=== PATIENT | male | born 1950 | race African-American/Black ===

== ENCOUNTER 2020-07-23 11:13 | Inpatient (IN) | payer OTHER ==
--- NOTE | 2020-07-23 11:35 | BHS.RME ---
Substance Use & Tx History - Substance Use History Alcohol Substance amount: 3 pints vodka Frequency of use: Daily Substance route: Oral Date of Last Use: 07/22/20 - Last Treatment Date of last treatment: 2015 Treatment type: Substance Use Disorder (DUSTY) Where was last treatment: Detox Physical/Psych/Mental Status - Behavior General Behavior: Increased activity (restlessness, agitation) Eye Contact: Normal - Cooperativeness Cooperativeness: Cooperative - Thinking Thought Processes: Tight, Logical, Goal Directed - Physical Health Problems Is patient presently having any pain?: No Does patient presently have any injuries (include location): No Does patient currently have a fever: No Is patient : No CIWA Nausea/Vomitin-Mild Nausea/No Vomiting Muscle Tremors: 2 Anxiety: 2 Agitation: 2 Paroxysmal Sweats: 2 Orientation: 1-Uncertain about Date Tacttile Disturbances: 1-Very Mild Itch/Numbness Auditory Disturbances: 0-None Visual Disturbances: 0-None Headache: 0-None Present CIWA-Ar Total Score: 11
--- NOTE | 2020-07-23 13:45 | HP ---
<Obi Harman - Last Filed: 07/23/20 13:55> CIWA Score Nausea/Vomitin-Mild Nausea/No Vomiting Muscle Tremors: 2 Anxiety: 2 Agitation: 2 Paroxysmal Sweats: 2 Orientation: 1-Uncertain about Date Tacttile Disturbances: 1-Very Mild Itch/Numbness Auditory Disturbances: 0-None Visual Disturbances: 0-None Headache: 0-None Present CIWA-Ar Total Score: 11 - Admission Criteria OASAS Guidelines: Admission for Medically Managed Detox: Requires at least one of the followin. CIWA greater than 12 2. Seizures within the past 24 hours 3. Delirium tremens within the past 24 hours 4. Hallucinations within the past 24 hours 5. Acute intervention needed for co occurring medical disorder 6. Acute intervention needed for co occurring psychiatric disorder 7. Severe withdrawal that cannot be handled at a lower level of care (continued vomiting, continued diarrhea, abnormal vital signs) requiring intravenous medication and/or fluids 8. Admitting History and Physical - Admission Chief Complaint: Drinking, dehydrated History of Present Illness: 70 y.o. M presents with alcohol dependence. - Substance Use History Alcohol Substance amount: 3 pints vodka Frequency of use: Daily Substance route: Oral Date of Last Use: 07/22/20 - Last Treatment Date of last treatment: 2015 Treatment type: Substance Use Disorder (DUSTY) Where was last treatment: Detox PMH: HTN PSH: b/l hip replacement, lung resection Psych: none Social: lives in [place] with his legal: none FELIX: 0.180 CIWA: 11 Patient admitted to detox/rehab for alcohol dependence. 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 Meets inpatient criteria. - Past Medical History Cardiovascular: Yes: HTN Pulmonary: Yes: Other (Lung cancer) Psych: Yes: Other (EtOH abuse) - Past Surgical History Additional Past Surgical History: Lobectomy - Smoking History Smoking history: Former smoker Have you smoked in the past 12 months: No If you are a former smoker, when did you quit?: 30 years ago - Alcohol/Substance Use Hx Alcohol Use: Yes History of Substance Use: reports: None (EtOH) - Social History Usual Living Arrangement: Yes: With Spouse Occupation: None History of Recent Travel: No Admission ROS BHS - HPI Chief Complaint: Alcohol dependence Allergies/Adverse Reactions: Allergies Allergy/AdvReac Type Severity Reaction Status Date / Time No Known Allergies Allergy Verified 07/23/20 16:22 - Ebola screening Have you traveled outside of the country in the last 21 days: No Have you had contact with anyone from an Ebola affected area: No Have you been sick,other than usual withdrawal symptoms: No Do you have a fever: No - Review of Systems Constitutional: No Symptoms Reported EENT: reports: No Symptoms Reported Respiratory: reports: No Symptoms reported Cardiac: reports: No Symptoms Reported Psychiatric: reports: Orientated x3 Patient History - Patient Medical History Hx Anemia: No Hx Asthma: No Hx Chronic Obstructive Pulmonary Disease (COPD): No Hx Cancer: No Hx Cardiac Disorders: No Hx Congestive Heart Failure: No Hx Hypertension: Yes Hx Hypercholesterolemia: Yes (WAS ON MEDS NON-COMPLIANT) Hx Pacemaker: No HX Cerebrovascular Accident: No Hx Seizures: No Hx Dementia: No Hx Diabetes: No Hx Gastrointestinal Disorders: No Hx Liver Disease: Yes Hx Genitourinary Disorders: No Hx Sexually Transmitted Disorders: No Hx Renal Disease (ESRD): No Hx Thyroid Disease: No Hx Human Immunodeficiency Virus (HIV): No Hx Hepatitis C: Yes (NEEDS TREATMENT) Hx Depression: No Hx Suicide Attempt: No Hx Bipolar Disorder: No Hx Schizophrenia: No - Patient Surgical History Past Surgical History: Yes Hx Cataract Extraction: Yes (about 3 yrs) Hx Abdominal Surgery: Yes (FOR ULCER,UNSURE OF PROCEDURE) Hx Orthopedic Surgery: Yes (BILATERAL HIP REPLACEMENT) - PPD History Date: 08/22/16 - Smoking Cessation Smoking history: Former smoker Have you smoked in the past 12 months: No If you are a former smoker, when did you quit?: 30 years ago Initiated information on smoking cessation: Yes 'Breaking Loose' booklet given: 07/23/20 Admission Physical Exam S - Vital Signs Vital Signs: Vitals: BP: 115/77 Pulse: 103 RR: 18 Temp: 97.5 WT: 158 HT: 6ft - Physical General Appearance: Yes: Within Normal Limits, Nourished HEENTM: Yes: Within Normal Limits Respiratory: Yes: Lungs Clear, Normal Breath Sounds, No Accessory Muscle Use Cardiology: Yes: Regular Rhythm, Regular Rate, S1, S2 Abdominal: Yes: Normal Bowel Sounds, Non Tender Extremities: Yes: Within Normal Limits Integumentary: Yes: Within Normal Limits, Normal Color, Warm Breathalyzer - Breathalyzer Breathalyzer: 0.180 Vital Signs - Vital Signs Vital signs refused: No Urine Drug Screen - Test Device Lot number: [id number] Expiration date: 07/03/22 - Control Is test valid?: Yes - Results Drug screen NEGATIVE: No Urine drug screen results: BZO-Benzodiazepines Inpatient Rehab Admission - Rehab Decision to Admit Inpatient rehab admission?: Yes - Initial Determination Are CD services needed?: No Free of communicable disease: Yes Not in need of hospitalization: Yes - Rehab Admission Criteria Previous failed treatment: Yes Poor recovery environment: Yes Comorbidities: Yes Lacks judgement: Yes Patient is meeting Inpatient Rehab admission criteria:: Yes <Aaron Zavala - Last Filed: 07/25/20 08:35> CIWA Score - Admission Criteria OASAS Guidelines: Admission for Medically Managed Detox: Requires at least one of the followin. CIWA greater than 12 2. Seizures within the past 24 hours 3. Delirium tremens within the past 24 hours 4. Hallucinations within the past 24 hours 5. Acute intervention needed for co occurring medical disorder 6. Acute intervention needed for co occurring psychiatric disorder 7. Severe withdrawal that cannot be handled at a lower level of care (continued vomiting, continued diarrhea, abnormal vital signs) requiring intravenous medication and/or fluids 8. Admitting History and Physical - Admission History Source: Patient Limitations to Obtaining History: No Limitations Admission Physical Exam BHS - Vital Signs Vital Signs: Vital Signs - 24 hr 07/24/20 07/24/20 07/24/20 09:05 12:42 16:57 Temperature 97.5 F L 97.5 F L 97.3 F L Pulse Rate 78 97 H 88 Respiratory 16 18 18 Rate Blood Pressure 119/64 110/76 105/76 O2 Sat by Pulse 98 98 Oximetry (%) 07/24/20 07/25/20 20:47 06:04 Temperature 97.3 F L 97.3 F L Pulse Rate 83 66 Respiratory 18 18 Rate Blood Pressure 114/78 115/69 O2 Sat by Pulse 95 Oximetry (%) - Diagnostic (1) Alcohol dependence with uncomplicated withdrawal Current Visit: Yes Status: Acute (2) Alcohol intoxication Current Visit: Yes Status: Acute Qualifiers: Complication of substance-induced condition: with unspecified complication (3) Alcohol-induced sleep disorder Current Visit: Yes Status: Acute (4) GERD (gastroesophageal reflux disease) Current Visit: Yes Status: Acute (5) HTN (hypertension) Current Visit: Yes Status: Acute Qualifiers: Hypertension type: essential hypertension Qualified Code(s): I10 - Essential (primary) hypertension (6) Hepatitis C Current Visit: Yes Status: Acute Qualifiers: Viral hepatitis chronicity: chronic Hepatic coma status: without hepatic coma Qualified Code(s): B18.2 - Chronic viral hepatitis C (7) Hyperlipidemia Current Visit: Yes Status: Acute
[2020-07-23] MEDS ORDERED: NICOTINE POLACRILEX 2 MG GUM BUC PRN (13:50)
[2020-07-23] MEDS ORDERED: chlordiazePOXIDE HCL 25 MG CAPSULE PO PRN (13:50)
[2020-07-23] MEDS ORDERED: MAGNESIUM CITRATE 300 ML BOTTLE PO PRN (13:50)
[2020-07-23] MEDS ORDERED: METHOCARBAMOL 500 MG TABLET PO PRN (13:50)
[2020-07-23] MEDS ORDERED: MENTHOL/PHENOL 1 EACH UD MM PRN (13:50)
[2020-07-23] MEDS ORDERED: MAGNESIUM HYDROX 2400MG/30ML ORAL SUSPENSION 30 ML CUP PO PRN (13:50)
[2020-07-23] MEDS ORDERED: MAG HYDROX/AL HYDROX/SIMETH 30 ML UNIT-DOSE CUP PO PRN (13:50)
[2020-07-23] MEDS ORDERED: BISMUTH SUBSALICYLATE 524 MG/30 ML UD PO PRN (13:50)
[2020-07-23] MEDS ORDERED: IBUPROFEN 400 MG TABLET (FP) PO PRN (13:50)
[2020-07-23] MEDS ORDERED: ACETAMINOPHEN 325 MG TABLET (FP) PO PRN ×2 (13:50)
[2020-07-23 16:57] VITALS: BMI 21.4
[2020-07-23] MEDS ORDERED: ONDANSETRON *ODT* 4 MG TABLET SL ONE (17:00)
[2020-07-23] MEDS: chlordiazePOXIDE HCL 25 MG CAPSULE PO SCH ×2 (18:15→22:08)
[2020-07-23] MEDS: hydrOXYzine PAMOATE 25 MG CAPSULE (FP) PO SCH ×3 (18:15→22:08)
[2020-07-23] MEDS: NICOTINE 7 MG/24 HOURS TOPICAL PATCH TD SCH (18:22)
[2020-07-23] MEDS: PRENATAL VITAMINS W/ FOLIC ACID TABLET (FP) PO SCH (18:22)
[2020-07-23] MEDS: THIAMINE HCL 100 MG TABLET (FP) PO SCH (22:08)
[2020-07-23] MEDS: MELATONIN 5 MG TABLETS PO SCH (22:08)
[2020-07-24] MEDS: hydrOXYzine PAMOATE 25 MG CAPSULE (FP) PO SCH ×5 (07:47→22:43)
[2020-07-24] MEDS: chlordiazePOXIDE HCL 25 MG CAPSULE PO SCH ×4 (07:47→22:44)
[2020-07-24] MEDS: NICOTINE 7 MG/24 HOURS TOPICAL PATCH TD SCH (10:36)
[2020-07-24] MEDS: PRENATAL VITAMINS W/ FOLIC ACID TABLET (FP) PO SCH (10:40)
[2020-07-24 10:51] LABS: HEMATOCRIT 37.3 % (35.4-49); HEMOGLOBIN 12.5 GM/dL (11.7-16.9); MCH 29.3 pg (25.7-33.7); MCHC 33.4 g/dl (32.0-35.9); MEAN CELL VOLUME 87.7 fl (80-96); MEAN PLT VOLUME 9.2 fl (7.5-11.1); PLATELET COUNT 162 K/MM3 (134-434); RBC 4.25 M/mm3 (4.00-5.60); RDW 14.6 % (11.9-15.9); WHITE BLOOD COUNT 7.2 K/mm3 (4.0-10.0)
[2020-07-24 10:53] LABS: ALBUMIN 3.3 g/dl (3.4-5.0); BILIRUBIN,TOTAL 0.9 mg/dL (0.2-1); BLOOD UREA NITROGEN 16.2 mg/dL (7-18); CREATININE 0.9 mg/dL (0.55-1.3); POTASSIUM 3.7 mmol/L (3.5-5.1); TOT PROT 6.8 g/dl (6.4-8.2)
--- NOTE | 2020-07-24 12:26 | PN ---
S CIWA - CIWA Score Nausea/Vomitin-No Nausea/No Vomiting Muscle Tremors: 2 Anxiety: 3 Agitation: 0-Normal Activity Paroxysmal Sweats: 3 Orientation: 0-Oriented Tacttile Disturbances: 0-None Auditory Disturbances: 0-None Visual Disturbances: 0-None Headache: 2-Mild CIWA-Ar Total Score: 10 S Progress Note (SOAP) Subjective: c/o headache, shakes, anxiety, and sweats. Objective: 07/24/20 12:25 Vital Signs 07/24/20 07/24/20 07/24/20 06:25 07:38 09:05 Temperature 97.3 F L 97.3 F L 97.5 F L Pulse Rate 73 44 L 78 Respiratory 18 18 16 Rate Blood Pressure 125/86 110/74 119/64 O2 Sat by Pulse 96 95 98 Oximetry (%) Laboratory Last Values WBC 7.2 K/mm3 (4.0-10.0) 07/24/20 08:30 RBC 4.25 M/mm3 (4.00-5.60) 07/24/20 08:30 Hgb 12.5 GM/dL (11.7-16.9) 07/24/20 08:30 Hct 37.3 % (35.4-49) D 07/24/20 08:30 MCV 87.7 fl (80-96) 07/24/20 08:30 MCH 29.3 pg (25.7-33.7) 07/24/20 08:30 MCHC 33.4 g/dl (32.0-35.9) 07/24/20 08:30 RDW 14.6 % (11.9-15.9) 07/24/20 08:30 Plt Count 162 K/MM3 (134-434) 07/24/20 08:30 MPV 9.2 fl (7.5-11.1) 07/24/20 08:30 Sodium 137 mmol/L (136-145) 07/24/20 08:30 Potassium 3.7 mmol/L (3.5-5.1) 07/24/20 08:30 Chloride 100 mmol/L (98-107) 07/24/20 08:30 Carbon Dioxide 32 mmol/L (21-32) 07/24/20 08:30 Anion Gap 6 MMOL/L (8-16) L 07/24/20 08:30 BUN 16.2 mg/dL (7-18) 07/24/20 08:30 Creatinine 0.9 mg/dL (0.55-1.3) 07/24/20 08:30 Est GFR (CKD-EPI)AfAm 98.55 07/24/20 08:30 Est GFR (CKD-EPI)NonAf 85.03 07/24/20 08:30 Random Glucose 99 mg/dL (74-106) 07/24/20 08:30 Calcium 9.0 mg/dL (8.5-10.1) 07/24/20 08:30 Total Bilirubin 0.9 mg/dL (0.2-1) 07/24/20 08:30 AST 21 U/L (15-37) 07/24/20 08:30 ALT 20 U/L (13-61) 07/24/20 08:30 Alkaline Phosphatase 80 U/L (45-117) 07/24/20 08:30 Total Protein 6.8 g/dl (6.4-8.2) 07/24/20 08:30 Albumin 3.3 g/dl (3.4-5.0) L 07/24/20 08:30 Syphilis Serology Non-reactive (NONREACTIVE) 07/24/20 08:30 Labs noted. Assessment: 07/24/20 12:25 AOX3, in no acute respiratory distress. Full ROM, ambulating in the unit. Withdrawal symptoms. Plan: continue detox.
[2020-07-24 17:54] VITALS: TEMP 97.3
[2020-07-24] MEDS: THIAMINE HCL 100 MG TABLET (FP) PO SCH (22:43)
[2020-07-24] MEDS: MELATONIN 5 MG TABLETS PO SCH (22:44)
[2020-07-25] MEDS ORDERED: chlordiazePOXIDE HCL 25 MG CAPSULE PO SCH (05:00)
[2020-07-25] MEDS: hydrOXYzine PAMOATE 25 MG CAPSULE (FP) PO SCH (06:54)
[2020-07-25 07:30] VITALS: BP 115/69; PULSE 66
--- NOTE | 2020-07-25 09:14 | PN ---
Teaching Attending Note Name of Resident: Obi Harman ATTENDING PHYSICIAN STATEMENT I saw and evaluated the patient. I reviewed the resident's note and discussed the case with the resident. I agree with the resident's findings and plan as documented. SUBJECTIVE: OBJECTIVE: ASSESSMENT AND PLAN: Agree with resident's findings and treatment plan for detox. Problem List - Problems (1) Alcohol dependence with uncomplicated withdrawal Code(s): F10.230 - ALCOHOL DEPENDENCE WITH WITHDRAWAL, UNCOMPLICATED (2) Alcohol intoxication Code(s): F10.129 - ALCOHOL ABUSE WITH INTOXICATION, UNSPECIFIED Qualifiers: Complication of substance-induced condition: with unspecified complication (3) Alcohol-induced sleep disorder Code(s): F10.982 - ALCOHOL USE, UNSPECIFIED WITH ALCOHOL-INDUCED SLEEP DISORDER (4) GERD (gastroesophageal reflux disease) Code(s): K21.9 - GASTRO-ESOPHAGEAL REFLUX DISEASE WITHOUT ESOPHAGITIS (5) HTN (hypertension) Code(s): I10 - ESSENTIAL (PRIMARY) HYPERTENSION Qualifiers: Hypertension type: essential hypertension Qualified Code(s): I10 - Essential (primary) hypertension (6) Hepatitis C Code(s): B19.20 - UNSPECIFIED VIRAL HEPATITIS C WITHOUT HEPATIC COMA Qualifiers: Viral hepatitis chronicity: chronic Hepatic coma status: without hepatic coma Qualified Code(s): B18.2 - Chronic viral hepatitis C (7) Hyperlipidemia Code(s): E78.5 - HYPERLIPIDEMIA, UNSPECIFIED
--- NOTE | 2020-07-25 13:48 | DS ---
[facility] Detox Discharge Summary Admission Date: 07/23/20 Discharge Date: 07/25/20 (Pt left AMA) - History Present History: Alcohol Dependence Additional Comments: Pt left AMA. Pt did not complete the detox protocol. Pt states, "i just want to leave". An attempt to let pt stay and complete the detox protocol failed. Pt is encouraged to follow-up with an outpatient CD program and also to follow-up with his pmd which he verbalized understanding. Pt is Pt is AOX3, in no acute respiratory distress, Full ROM, and ambulatory. Pertinent Past History: h/o HTN, HLD, and alcohol use disorder. - Physical Exam Results Vital Signs: Vital Signs Temperature 97.3 F L 07/25/20 06:04 Pulse Rate 66 07/25/20 06:04 Respiratory Rate 18 07/25/20 06:04 Blood Pressure 115/69 07/25/20 06:04 O2 Sat by Pulse Oximetry (%) 95 07/24/20 20:47 Vital Signs 07/25/20 06:04 Temperature 97.3 F L Pulse Rate 66 Respiratory 18 Rate Blood Pressure 115/69 Laboratory Last Values WBC 7.2 K/mm3 (4.0-10.0) 07/24/20 08:30 RBC 4.25 M/mm3 (4.00-5.60) 07/24/20 08:30 Hgb 12.5 GM/dL (11.7-16.9) 07/24/20 08:30 Hct 37.3 % (35.4-49) D 07/24/20 08:30 MCV 87.7 fl (80-96) 07/24/20 08:30 MCH 29.3 pg (25.7-33.7) 07/24/20 08:30 MCHC 33.4 g/dl (32.0-35.9) 07/24/20 08:30 RDW 14.6 % (11.9-15.9) 07/24/20 08:30 Plt Count 162 K/MM3 (134-434) 07/24/20 08:30 MPV 9.2 fl (7.5-11.1) 07/24/20 08:30 Sodium 137 mmol/L (136-145) 07/24/20 08:30 Potassium 3.7 mmol/L (3.5-5.1) 07/24/20 08:30 Chloride 100 mmol/L (98-107) 07/24/20 08:30 Carbon Dioxide 32 mmol/L (21-32) 07/24/20 08:30 Anion Gap 6 MMOL/L (8-16) L 07/24/20 08:30 BUN 16.2 mg/dL (7-18) 07/24/20 08:30 Creatinine 0.9 mg/dL (0.55-1.3) 07/24/20 08:30 Est GFR (CKD-EPI)AfAm 98.55 07/24/20 08:30 Est GFR (CKD-EPI)NonAf 85.03 07/24/20 08:30 Random Glucose 99 mg/dL (74-106) 07/24/20 08:30 Calcium 9.0 mg/dL (8.5-10.1) 07/24/20 08:30 Total Bilirubin 0.9 mg/dL (0.2-1) 07/24/20 08:30 AST 21 U/L (15-37) 07/24/20 08:30 ALT 20 U/L (13-61) 07/24/20 08:30 Alkaline Phosphatase 80 U/L (45-117) 07/24/20 08:30 Total Protein 6.8 g/dl (6.4-8.2) 07/24/20 08:30 Albumin 3.3 g/dl (3.4-5.0) L 07/24/20 08:30 Syphilis Serology Non-reactive (NONREACTIVE) 07/24/20 08:30 Labs noted. Pertinent Admission Physical Exam Findings: withdrawal symptoms. - Treatment Hospital Course: Detox Protocol Followed - Medication Discharge Medications: Ambulatory Orders Ergocalciferol (Vitamin D2) [Drisdol] 50,000 units PO WEEKLY 08/09/16 Hydrochlorothiazide 25 mg PO DAILY 08/09/16 Metoprolol Succinate [Toprol XL -] 25 mg PO DAILY 08/09/16 Amlodipine Besylate [Norvasc -] 5 mg PO DAILY 07/23/20 Tamsulosin HCl [Flomax] 0.4 mg PO DAILY 07/23/20 - Diagnosis (1) Alcohol dependence with uncomplicated withdrawal Status: Acute (2) Alcohol dependence, uncomplicated Status: Chronic (3) GERD (gastroesophageal reflux disease) Status: Chronic (4) HTN (hypertension) Status: Chronic Qualifiers: Hypertension type: essential hypertension Qualified Code(s): I10 - Essential (primary) hypertension (5) Hyperlipidemia Status: Chronic - AMA Did Patient Leave Against Medical Advice: Yes
[2020-07-26] MEDS ORDERED: chlordiazePOXIDE HCL 10 MG CAPSULE PO PRN
[2020-07-26] MEDS ORDERED: chlordiazePOXIDE HCL 10 MG CAPSULE PO SCH (05:00)
[2020-07-27] MEDS ORDERED: chlordiazePOXIDE HCL 10 MG CAPSULE PO SCH (05:00)
[2020-07-28] MEDS ORDERED: chlordiazePOXIDE HCL 10 MG CAPSULE PO ONE (05:00)
== END 2020-07-25 09:15 | disposition left against medical advice (07) | DRG 894 ==
LOC: YASAS 11:13 → Y6N 16:37
PROVIDERS: ADMIT Allergy & Immunology; ATTEND Allergy & Immunology
PROC: HZ2ZZZZ Detoxification Services for Substance Abuse Treatment (ICD-10-PCS; principal; 2020-07-23)
DX: F10.230 Alcohol dependence with withdrawal, uncomplicated (principal); F10.220 Alcohol dependence with intoxication, uncomplicated; F10.282 Alcohol dependence with alcohol-induced sleep disorder; F17.211 Nicotine dependence, cigarettes, in remission; I10 Essential (primary) hypertension; E78.5 Hyperlipidemia, unspecified; K21.9 Gastro-esophageal reflux disease without esophagitis; B19.20 Unspecified viral hepatitis C without hepatic coma; Z85.118 Personal history of other malignant neoplasm of bronchus and lung; Z98.890 Other specified postprocedural states; Z96.643 Presence of artificial hip joint, bilateral
CPT/HCPCS: 36415; 80053; 85027; 86780; U0003

== ENCOUNTER 2020-12-01 17:38 | Inpatient (IN) | payer OTHER ==
[2020-12-01] MEDS ORDERED: BISMUTH SUBSALICYLATE 524 MG/30 ML UD PO PRN (18:55)
[2020-12-01] MEDS ORDERED: ACETAMINOPHEN 325 MG TABLET (FP) PO PRN ×2 (18:55)
[2020-12-01] MEDS ORDERED: MENTHOL/PHENOL 1 EACH UD MM PRN (18:55)
[2020-12-01] MEDS ORDERED: MAG HYDROX/AL HYDROX/SIMETH 30 ML UNIT-DOSE CUP PO PRN (18:55)
[2020-12-01] MEDS ORDERED: MAGNESIUM CITRATE 300 ML BOTTLE PO PRN (18:55)
[2020-12-01] MEDS ORDERED: IBUPROFEN 400 MG TABLET (FP) PO PRN (18:55)
[2020-12-01] MEDS ORDERED: NICOTINE POLACRILEX 2 MG GUM BUC PRN (18:55)
[2020-12-01] MEDS ORDERED: MAGNESIUM HYDROX 2400MG/30ML ORAL SUSPENSION 30 ML CUP PO PRN (18:55)
[2020-12-01 19:06] VITALS: BMI 21.4
[2020-12-01] MEDS: chlordiazePOXIDE HCL 25 MG CAPSULE PO PRN (19:50)
[2020-12-01] MEDS: MELATONIN 5 MG TABLETS PO SCH (23:18)
[2020-12-01] MEDS: THIAMINE HCL 100 MG TABLET (FP) PO SCH (23:18)
[2020-12-01] MEDS: chlordiazePOXIDE HCL 25 MG CAPSULE PO SCH (23:18)
[2020-12-01] MEDS: hydrOXYzine PAMOATE 25 MG CAPSULE (FP) PO SCH (23:18)
[2020-12-02 01:52] LABS: PH,URINE 5.5 (5.0-8.0); URINE APPEARANCE CLEAR; URINE BILIRUBIN NEGATIVE (NEGATIVE); URINE COLOR YELLOW; URINE GLUCOSE (UA) NEGATIVE (NEGATIVE); URINE KETONE NEGATIVE (NEGATIVE); URINE LEUK ESTERASE NEGATIVE (NEGATIVE); URINE NITRITE NEGATIVE (NEGATIVE); URINE PROTEIN NEGATIVE (NEGATIVE)
[2020-12-02] MEDS: hydrOXYzine PAMOATE 25 MG CAPSULE (FP) PO SCH ×5 (05:38→22:37)
[2020-12-02] MEDS: chlordiazePOXIDE HCL 25 MG CAPSULE PO SCH ×4 (05:38→22:37)
[2020-12-02] MEDS: ONDANSETRON *ODT* 4 MG TABLET SL PRN ×2 (07:26→16:08)
[2020-12-02] MEDS: METHOCARBAMOL 500 MG TABLET PO PRN (09:15)
[2020-12-02] MEDS: chlordiazePOXIDE HCL 25 MG CAPSULE PO PRN ×2 (09:16→19:49)
[2020-12-02] MEDS ORDERED: TRIMETHOBENZAMIDE HCL 200MG/2ML INJ IM ONE (09:34)
[2020-12-02] MEDS: metoPROLOL SUCCINATE 25 MG TAB.SR.24H (FP) PO SCH (10:39)
[2020-12-02] MEDS: TAMSULOSIN HCL 0.4 MG CAP PO SCH (10:39)
[2020-12-02] MEDS: amLODIPine BESYLATE 5 MG TABLET (FP) PO SCH (10:39)
[2020-12-02] MEDS: HYDROCHLOROTHIAZIDE 25 MG TABLET (FP) PO SCH (10:39)
[2020-12-02] MEDS: FAMOTIDINE 20 MG TABLET PO SCH ×2 (10:40→22:37)
[2020-12-02] MEDS: PRENATAL VITAMINS W/ FOLIC ACID TABLET (FP) PO SCH (10:40)
[2020-12-02 11:10] LABS: HEMATOCRIT 39.3 % (35.4-49); HEMOGLOBIN 13.2 GM/dL (11.7-16.9); MCH 28.4 pg (25.7-33.7); MCHC 33.7 g/dl (32.0-35.9); MEAN CELL VOLUME 84.3 fl (80-96); MEAN PLT VOLUME 8.5 fl (7.5-11.1); PLATELET COUNT 153 K/MM3 (134-434); RBC 4.66 M/mm3 (4.00-5.60); RDW 15.5 % (11.9-15.9); WHITE BLOOD COUNT 4.6 K/mm3 (4.0-10.0)
[2020-12-02 11:12] LABS: POTASSIUM 3.9 mmol/L (3.5-5.1)
[2020-12-02 11:19] LABS: BLOOD UREA NITROGEN 13.2 mg/dL (7-18); CALCIUM 9.1 mg/dL (8.5-10.1)
[2020-12-02 11:24] LABS: TOT PROT 7.3 g/dl (6.4-8.2)
[2020-12-02] MEDS: MELATONIN 5 MG TABLETS PO SCH (22:37)
[2020-12-02] MEDS: THIAMINE HCL 100 MG TABLET (FP) PO SCH (22:37)
[2020-12-03] MEDS: chlordiazePOXIDE HCL 25 MG CAPSULE PO SCH ×4 (05:56→22:19)
[2020-12-03] MEDS: hydrOXYzine PAMOATE 25 MG CAPSULE (FP) PO SCH ×5 (05:57→22:19)
[2020-12-03] MEDS: TAMSULOSIN HCL 0.4 MG CAP PO SCH (10:31)
[2020-12-03] MEDS: FAMOTIDINE 20 MG TABLET PO SCH ×2 (10:32→22:19)
[2020-12-03] MEDS: PRENATAL VITAMINS W/ FOLIC ACID TABLET (FP) PO SCH (10:32)
[2020-12-03] MEDS: HYDROCHLOROTHIAZIDE 25 MG TABLET (FP) PO SCH (10:32)
[2020-12-03] MEDS: amLODIPine BESYLATE 5 MG TABLET (FP) PO SCH (10:32)
[2020-12-03] MEDS: metoPROLOL SUCCINATE 25 MG TAB.SR.24H (FP) PO SCH (10:33)
[2020-12-03] MEDS: THIAMINE HCL 100 MG TABLET (FP) PO SCH (22:18)
[2020-12-03] MEDS: MELATONIN 5 MG TABLETS PO SCH (22:19)
[2020-12-04] MEDS ORDERED: chlordiazePOXIDE HCL 10 MG CAPSULE PO PRN
[2020-12-04] MEDS: chlordiazePOXIDE HCL 10 MG CAPSULE PO SCH ×4 (06:08→22:33)
[2020-12-04] MEDS: hydrOXYzine PAMOATE 25 MG CAPSULE (FP) PO SCH ×6 (06:08→22:33)
[2020-12-04] MEDS ORDERED: MASKS NR ONE (09:23)
[2020-12-04] MEDS ORDERED: ERGOCALCIFEROL (VIT D2) 50,000 UNIT (1.25 MG) CAPSULE PO SCH (10:00)
[2020-12-04] MEDS: amLODIPine BESYLATE 5 MG TABLET (FP) PO SCH (10:27)
[2020-12-04] MEDS: FAMOTIDINE 20 MG TABLET PO SCH ×2 (10:27→22:33)
[2020-12-04] MEDS: HYDROCHLOROTHIAZIDE 25 MG TABLET (FP) PO SCH (10:27)
[2020-12-04] MEDS: metoPROLOL SUCCINATE 25 MG TAB.SR.24H (FP) PO SCH (10:28)
[2020-12-04] MEDS: TAMSULOSIN HCL 0.4 MG CAP PO SCH (10:28)
[2020-12-04] MEDS: PRENATAL VITAMINS W/ FOLIC ACID TABLET (FP) PO SCH (10:29)
[2020-12-04 11:01] LABS: BILIRUBIN,TOTAL 1.5 mg/dL (0.2-1)
[2020-12-04] MEDS: MELATONIN 5 MG TABLETS PO SCH (22:33)
[2020-12-04] MEDS: THIAMINE HCL 100 MG TABLET (FP) PO SCH (22:33)
[2020-12-05] MEDS: chlordiazePOXIDE HCL 10 MG CAPSULE PO SCH ×2 (06:08→18:09)
[2020-12-05] MEDS: hydrOXYzine PAMOATE 25 MG CAPSULE (FP) PO SCH ×5 (06:08→22:36)
[2020-12-05] MEDS: HYDROCHLOROTHIAZIDE 25 MG TABLET (FP) PO SCH (10:08)
[2020-12-05] MEDS: FAMOTIDINE 20 MG TABLET PO SCH ×2 (10:09→22:36)
[2020-12-05] MEDS: metoPROLOL SUCCINATE 25 MG TAB.SR.24H (FP) PO SCH (10:09)
[2020-12-05] MEDS: TAMSULOSIN HCL 0.4 MG CAP PO SCH (10:10)
[2020-12-05] MEDS: PRENATAL VITAMINS W/ FOLIC ACID TABLET (FP) PO SCH (10:11)
[2020-12-05] MEDS: amLODIPine BESYLATE 5 MG TABLET (FP) PO SCH (10:14)
[2020-12-05] MEDS: ONDANSETRON *ODT* 4 MG TABLET SL PRN (19:45)
[2020-12-05] MEDS: MELATONIN 5 MG TABLETS PO SCH (22:36)
[2020-12-05] MEDS: THIAMINE HCL 100 MG TABLET (FP) PO SCH (22:36)
[2020-12-05] MEDS: METHOCARBAMOL 500 MG TABLET PO PRN (23:08)
[2020-12-06] MEDS ORDERED: chlordiazePOXIDE HCL 10 MG CAPSULE PO ONE (05:00)
[2020-12-06] MEDS: hydrOXYzine PAMOATE 25 MG CAPSULE (FP) PO SCH ×2 (06:22→10:24)
[2020-12-06 09:08] VITALS: BP 108/73; PULSE 71; TEMP 97.3
[2020-12-06] MEDS: FAMOTIDINE 20 MG TABLET PO SCH (10:22)
[2020-12-06] MEDS: HYDROCHLOROTHIAZIDE 25 MG TABLET (FP) PO SCH (10:22)
[2020-12-06] MEDS: TAMSULOSIN HCL 0.4 MG CAP PO SCH (10:22)
[2020-12-06] MEDS: amLODIPine BESYLATE 5 MG TABLET (FP) PO SCH (10:23)
[2020-12-06] MEDS: metoPROLOL SUCCINATE 25 MG TAB.SR.24H (FP) PO SCH (10:23)
[2020-12-06] MEDS: PRENATAL VITAMINS W/ FOLIC ACID TABLET (FP) PO SCH (10:23)
== END 2020-12-06 12:24 | disposition other institution (70) | DRG 897 ==
LOC: YASAS 17:38 → Y6N 18:44
PROVIDERS: ADMIT Allergy & Immunology; ATTEND Allergy & Immunology
PROC: HZ2ZZZZ Detoxification Services for Substance Abuse Treatment (ICD-10-PCS; principal; 2020-12-01)
DX: F10.230 Alcohol dependence with withdrawal, uncomplicated (principal); F10.220 Alcohol dependence with intoxication, uncomplicated; F41.9 Anxiety disorder, unspecified; I10 Essential (primary) hypertension; I49.3 Ventricular premature depolarization; K21.9 Gastro-esophageal reflux disease without esophagitis; B18.2 Chronic viral hepatitis C; N40.0 Benign prostatic hyperplasia without lower urinary tract symptoms; M62.81 Muscle weakness (generalized); M25.521 Pain in right elbow; W19.XXXA Unspecified fall, initial encounter; Y93.89 Activity, other specified; Y92.238 Other place in hospital as the place of occurrence of the external cause; Y99.9 Unspecified external cause status; Z99.89 Dependence on other enabling machines and devices
CPT/HCPCS: 36415; 80053; 81003; 82247; 84450; 85027; 86780; 93005; 93010; C9803; Q0162; U0003

== ENCOUNTER 2020-12-06 12:27 | Inpatient (IN) | payer OTHER ==
[2020-12-06] MEDS ORDERED: LOPERAMIDE HCL 2 MG CAPSULE PO PRN (13:42)
[2020-12-06] MEDS ORDERED: P-EPHED 60MG/TRIPROLIDI 2.5MG TABLET PO PRN (13:42)
[2020-12-06] MEDS ORDERED: ACETAMINOPHEN 325 MG TABLET (FP) PO PRN (13:42)
[2020-12-06] MEDS ORDERED: MAG HYDROX/AL HYDROX/SIMETH 30 ML UNIT-DOSE CUP PO PRN (13:42)
[2020-12-06] MEDS ORDERED: guaiFENesin 200 MG/10 ML 10 ML UNIT-DOSE CUPS PO PRN (13:42)
[2020-12-06] MEDS ORDERED: MENTHOL/PHENOL 1 EACH UD MM PRN (13:42)
[2020-12-06] MEDS ORDERED: IBUPROFEN 400 MG TABLET (FP) PO PRN (13:42)
[2020-12-06] MEDS ORDERED: MAGNESIUM CITRATE 300 ML BOTTLE PO PRN (13:42)
[2020-12-06] MEDS ORDERED: MAGNESIUM HYDROX 2400MG/30ML ORAL SUSPENSION 30 ML CUP PO PRN (13:42)
[2020-12-06] MEDS ORDERED: NICOTINE POLACRILEX 2 MG GUM BUC PRN (13:42)
[2020-12-06] MEDS ORDERED: hydrOXYzine PAMOATE 25 MG CAPSULE (FP) PO PRN (13:42)
[2020-12-06] MEDS: MELATONIN 5 MG TABLETS PO SCH (21:36)
[2020-12-06] MEDS: THIAMINE HCL 100 MG TABLET (FP) PO SCH (21:36)
[2020-12-07] MEDS: TAMSULOSIN HCL 0.4 MG CAP PO SCH (07:53)
[2020-12-07] MEDS: PRENATAL VITAMINS W/ FOLIC ACID TABLET (FP) PO SCH (09:31)
[2020-12-07] MEDS: amLODIPine BESYLATE 5 MG TABLET (FP) PO SCH (09:31)
[2020-12-07] MEDS: HYDROCHLOROTHIAZIDE 25 MG TABLET (FP) PO SCH (09:31)
[2020-12-07] MEDS: NICOTINE 7 MG/24 HOURS TOPICAL PATCH TD SCH (09:31)
[2020-12-07] MEDS: metoPROLOL SUCCINATE 25 MG TAB.SR.24H (FP) PO SCH (10:23)
[2020-12-07 12:41] LABS: HIV INTERPRETATION NEGATIVE (NEGATIVE)
[2020-12-07] MEDS: THIAMINE HCL 100 MG TABLET (FP) PO SCH (21:06)
[2020-12-07] MEDS: MELATONIN 5 MG TABLETS PO SCH (21:06)
[2020-12-08] MEDS: TAMSULOSIN HCL 0.4 MG CAP PO SCH (09:15)
[2020-12-08] MEDS: amLODIPine BESYLATE 5 MG TABLET (FP) PO SCH (09:15)
[2020-12-08] MEDS: NICOTINE 7 MG/24 HOURS TOPICAL PATCH TD SCH (09:15)
[2020-12-08] MEDS: HYDROCHLOROTHIAZIDE 25 MG TABLET (FP) PO SCH (09:15)
[2020-12-08] MEDS: PRENATAL VITAMINS W/ FOLIC ACID TABLET (FP) PO SCH (09:15)
[2020-12-08] MEDS: metoPROLOL SUCCINATE 25 MG TAB.SR.24H (FP) PO SCH (09:16)
[2020-12-08] MEDS: MELATONIN 5 MG TABLETS PO SCH (21:10)
[2020-12-08] MEDS: THIAMINE HCL 100 MG TABLET (FP) PO SCH (21:10)
[2020-12-09] MEDS: amLODIPine BESYLATE 5 MG TABLET (FP) PO SCH (09:08)
[2020-12-09] MEDS: PRENATAL VITAMINS W/ FOLIC ACID TABLET (FP) PO SCH (09:08)
[2020-12-09] MEDS: TAMSULOSIN HCL 0.4 MG CAP PO SCH (09:08)
[2020-12-09] MEDS: NICOTINE 7 MG/24 HOURS TOPICAL PATCH TD SCH (09:08)
[2020-12-09] MEDS: HYDROCHLOROTHIAZIDE 25 MG TABLET (FP) PO SCH (09:08)
[2020-12-09] MEDS: metoPROLOL SUCCINATE 25 MG TAB.SR.24H (FP) PO SCH (09:09)
[2020-12-09] MEDS: THIAMINE HCL 100 MG TABLET (FP) PO SCH (21:59)
[2020-12-09] MEDS: MELATONIN 5 MG TABLETS PO SCH (21:59)
[2020-12-10] MEDS: HYDROCHLOROTHIAZIDE 25 MG TABLET (FP) PO SCH (09:24)
[2020-12-10] MEDS: TAMSULOSIN HCL 0.4 MG CAP PO SCH (09:24)
[2020-12-10] MEDS: PRENATAL VITAMINS W/ FOLIC ACID TABLET (FP) PO SCH (09:24)
[2020-12-10] MEDS: amLODIPine BESYLATE 5 MG TABLET (FP) PO SCH (09:25)
[2020-12-10] MEDS: NICOTINE 7 MG/24 HOURS TOPICAL PATCH TD SCH (09:25)
[2020-12-10] MEDS: metoPROLOL SUCCINATE 25 MG TAB.SR.24H (FP) PO SCH (09:25)
[2020-12-10] MEDS: MELATONIN 5 MG TABLETS PO SCH (23:59)
[2020-12-10] MEDS: THIAMINE HCL 100 MG TABLET (FP) PO SCH (23:59)
[2020-12-11] MEDS: PRENATAL VITAMINS W/ FOLIC ACID TABLET (FP) PO SCH (09:19)
[2020-12-11] MEDS: HYDROCHLOROTHIAZIDE 25 MG TABLET (FP) PO SCH (09:19)
[2020-12-11] MEDS: TAMSULOSIN HCL 0.4 MG CAP PO SCH (09:19)
[2020-12-11] MEDS: metoPROLOL SUCCINATE 25 MG TAB.SR.24H (FP) PO SCH (09:19)
[2020-12-11] MEDS: NICOTINE 7 MG/24 HOURS TOPICAL PATCH TD SCH (09:20)
[2020-12-11] MEDS: amLODIPine BESYLATE 5 MG TABLET (FP) PO SCH (09:20)
[2020-12-11] MEDS ORDERED: MASKS NR ONE (09:26)
[2020-12-11] MEDS: MELATONIN 5 MG TABLETS PO SCH (21:47)
[2020-12-11] MEDS: THIAMINE HCL 100 MG TABLET (FP) PO SCH (21:48)
[2020-12-12] MEDS: HYDROCHLOROTHIAZIDE 25 MG TABLET (FP) PO SCH (09:28)
[2020-12-12] MEDS: amLODIPine BESYLATE 5 MG TABLET (FP) PO SCH (09:28)
[2020-12-12] MEDS: TAMSULOSIN HCL 0.4 MG CAP PO SCH (09:28)
[2020-12-12] MEDS: metoPROLOL SUCCINATE 25 MG TAB.SR.24H (FP) PO SCH (09:29)
[2020-12-12] MEDS: PRENATAL VITAMINS W/ FOLIC ACID TABLET (FP) PO SCH (09:29)
[2020-12-12] MEDS: NICOTINE 7 MG/24 HOURS TOPICAL PATCH TD SCH (09:29)
[2020-12-12] MEDS: MELATONIN 5 MG TABLETS PO SCH (21:39)
[2020-12-12] MEDS: THIAMINE HCL 100 MG TABLET (FP) PO SCH (21:40)
[2020-12-13] MEDS: amLODIPine BESYLATE 5 MG TABLET (FP) PO SCH (09:17)
[2020-12-13] MEDS: HYDROCHLOROTHIAZIDE 25 MG TABLET (FP) PO SCH (09:17)
[2020-12-13] MEDS: TAMSULOSIN HCL 0.4 MG CAP PO SCH (09:17)
[2020-12-13] MEDS: PRENATAL VITAMINS W/ FOLIC ACID TABLET (FP) PO SCH (09:17)
[2020-12-13] MEDS: NICOTINE 7 MG/24 HOURS TOPICAL PATCH TD SCH (09:19)
[2020-12-13] MEDS: metoPROLOL SUCCINATE 25 MG TAB.SR.24H (FP) PO SCH (10:39)
[2020-12-14] MEDS: THIAMINE HCL 100 MG TABLET (FP) PO SCH ×2 (00:06→22:48)
[2020-12-14] MEDS: MELATONIN 5 MG TABLETS PO SCH ×2 (00:06→22:48)
[2020-12-14] MEDS: metoPROLOL SUCCINATE 25 MG TAB.SR.24H (FP) PO SCH (09:35)
[2020-12-14] MEDS: HYDROCHLOROTHIAZIDE 25 MG TABLET (FP) PO SCH (09:35)
[2020-12-14] MEDS: amLODIPine BESYLATE 5 MG TABLET (FP) PO SCH (09:36)
[2020-12-14] MEDS: PRENATAL VITAMINS W/ FOLIC ACID TABLET (FP) PO SCH (09:36)
[2020-12-14] MEDS: TAMSULOSIN HCL 0.4 MG CAP PO SCH (09:36)
[2020-12-14] MEDS: NICOTINE 7 MG/24 HOURS TOPICAL PATCH TD SCH (09:36)
[2020-12-15] MEDS: PRENATAL VITAMINS W/ FOLIC ACID TABLET (FP) PO SCH (09:22)
[2020-12-15] MEDS: NICOTINE 7 MG/24 HOURS TOPICAL PATCH TD SCH (09:23)
[2020-12-15] MEDS: metoPROLOL SUCCINATE 25 MG TAB.SR.24H (FP) PO SCH (09:23)
[2020-12-15] MEDS: amLODIPine BESYLATE 5 MG TABLET (FP) PO SCH (09:23)
[2020-12-15] MEDS: HYDROCHLOROTHIAZIDE 25 MG TABLET (FP) PO SCH (09:23)
[2020-12-15] MEDS: TAMSULOSIN HCL 0.4 MG CAP PO SCH (09:23)
[2020-12-15] MEDS: THIAMINE HCL 100 MG TABLET (FP) PO SCH (21:12)
[2020-12-15] MEDS: MELATONIN 5 MG TABLETS PO SCH (21:12)
[2020-12-16] MEDS: TAMSULOSIN HCL 0.4 MG CAP PO SCH (09:19)
[2020-12-16] MEDS: HYDROCHLOROTHIAZIDE 25 MG TABLET (FP) PO SCH (09:19)
[2020-12-16] MEDS: amLODIPine BESYLATE 5 MG TABLET (FP) PO SCH (09:19)
[2020-12-16] MEDS: PRENATAL VITAMINS W/ FOLIC ACID TABLET (FP) PO SCH (09:19)
[2020-12-16] MEDS: NICOTINE 7 MG/24 HOURS TOPICAL PATCH TD SCH (09:19)
[2020-12-16] MEDS: metoPROLOL SUCCINATE 25 MG TAB.SR.24H (FP) PO SCH (09:19)
[2020-12-16] MEDS: THIAMINE HCL 100 MG TABLET (FP) PO SCH (21:14)
[2020-12-16] MEDS: MELATONIN 5 MG TABLETS PO SCH (21:14)
[2020-12-17] MEDS: TAMSULOSIN HCL 0.4 MG CAP PO SCH (09:10)
[2020-12-17] MEDS: amLODIPine BESYLATE 5 MG TABLET (FP) PO SCH (09:10)
[2020-12-17] MEDS: HYDROCHLOROTHIAZIDE 25 MG TABLET (FP) PO SCH (09:10)
[2020-12-17] MEDS: PRENATAL VITAMINS W/ FOLIC ACID TABLET (FP) PO SCH (09:10)
[2020-12-17] MEDS: metoPROLOL SUCCINATE 25 MG TAB.SR.24H (FP) PO SCH (09:10)
[2020-12-17] MEDS: NICOTINE 7 MG/24 HOURS TOPICAL PATCH TD SCH (09:11)
[2020-12-17] MEDS: THIAMINE HCL 100 MG TABLET (FP) PO SCH (21:46)
[2020-12-17] MEDS: MELATONIN 5 MG TABLETS PO SCH (21:46)
[2020-12-18 06:48] VITALS: TEMP 97.5
[2020-12-18] MEDS: amLODIPine BESYLATE 5 MG TABLET (FP) PO SCH (09:33)
[2020-12-18] MEDS: NICOTINE 7 MG/24 HOURS TOPICAL PATCH TD SCH (09:33)
[2020-12-18] MEDS: PRENATAL VITAMINS W/ FOLIC ACID TABLET (FP) PO SCH (09:33)
[2020-12-18] MEDS: TAMSULOSIN HCL 0.4 MG CAP PO SCH (09:33)
[2020-12-18] MEDS: metoPROLOL SUCCINATE 25 MG TAB.SR.24H (FP) PO SCH (09:33)
[2020-12-18] MEDS: HYDROCHLOROTHIAZIDE 25 MG TABLET (FP) PO SCH (09:33)
[2020-12-18] MEDS: MELATONIN 5 MG TABLETS PO SCH (22:00)
[2020-12-18] MEDS: THIAMINE HCL 100 MG TABLET (FP) PO SCH (22:00)
[2020-12-19] MEDS: HYDROCHLOROTHIAZIDE 25 MG TABLET (FP) PO SCH (09:42)
[2020-12-19] MEDS: amLODIPine BESYLATE 5 MG TABLET (FP) PO SCH (09:42)
[2020-12-19] MEDS: TAMSULOSIN HCL 0.4 MG CAP PO SCH (09:42)
[2020-12-19] MEDS: PRENATAL VITAMINS W/ FOLIC ACID TABLET (FP) PO SCH (09:43)
[2020-12-19] MEDS: metoPROLOL SUCCINATE 25 MG TAB.SR.24H (FP) PO SCH (09:43)
[2020-12-19] MEDS: NICOTINE 7 MG/24 HOURS TOPICAL PATCH TD SCH (09:46)
[2020-12-19 11:05] VITALS: BP 115/68; PULSE 69
== END 2020-12-19 09:45 | disposition home or self-care (01) | DRG 895 ==
LOC: YASAS 12:27 → Y5N 12:29
PROVIDERS: ADMIT Allergy & Immunology; ATTEND Allergy & Immunology
PROC: HZ42ZZZ Group Counseling for Substance Abuse Treatment, Cognitive-Behavioral (ICD-10-PCS; principal; 2020-12-06)
DX: F10.20 Alcohol dependence, uncomplicated (principal); F19.24 Other psychoactive substance dependence with psychoactive substance-induced mood disorder; F41.9 Anxiety disorder, unspecified; I10 Essential (primary) hypertension; E78.5 Hyperlipidemia, unspecified; N40.0 Benign prostatic hyperplasia without lower urinary tract symptoms; B19.20 Unspecified viral hepatitis C without hepatic coma; R56.9 Unspecified convulsions; Z87.11 Personal history of peptic ulcer disease; Z85.118 Personal history of other malignant neoplasm of bronchus and lung; Z90.3 Acquired absence of stomach [part of]; Z98.890 Other specified postprocedural states; Z91.410 Personal history of adult physical and sexual abuse
CPT/HCPCS: 36415; 87389

== ENCOUNTER 2021-01-15 11:27 | Inpatient (IN) | payer OTHER ==
[2021-01-15 19:41] VITALS: BMI 21.5
[2021-01-15] MEDS ORDERED: MAGNESIUM CITRATE 300 ML BOTTLE PO PRN (20:16)
[2021-01-15] MEDS ORDERED: BISMUTH SUBSALICYLATE 524 MG/30 ML UD PO PRN (20:16)
[2021-01-15] MEDS ORDERED: IBUPROFEN 400 MG TABLET (FP) PO PRN (20:16)
[2021-01-15] MEDS ORDERED: MENTHOL/PHENOL 1 EACH UD MM PRN (20:16)
[2021-01-15] MEDS ORDERED: MAGNESIUM HYDROX 2400MG/30ML ORAL SUSPENSION 30 ML CUP PO PRN (20:16)
[2021-01-15] MEDS ORDERED: METHOCARBAMOL 500 MG TABLET PO PRN (20:16)
[2021-01-15] MEDS ORDERED: MAG HYDROX/AL HYDROX/SIMETH 30 ML UNIT-DOSE CUP PO PRN (20:16)
[2021-01-15] MEDS ORDERED: ONDANSETRON *ODT* 4 MG TABLET SL PRN (20:16)
[2021-01-15] MEDS ORDERED: LORazepam 1 MG TABLET PO PRN (20:16)
[2021-01-15] MEDS ORDERED: ACETAMINOPHEN 325 MG TABLET (FP) PO PRN ×2 (20:16)
[2021-01-15] MEDS: hydrOXYzine PAMOATE 25 MG CAPSULE (FP) PO SCH (22:11)
[2021-01-15] MEDS: PRENATAL VITAMINS W/ FOLIC ACID TABLET (FP) PO SCH (22:11)
[2021-01-15] MEDS: LORazepam 2 MG TABLET PO SCH (22:11)
[2021-01-15] MEDS: THIAMINE HCL 100 MG TABLET (FP) PO SCH (22:11)
[2021-01-15] MEDS: MELATONIN 5 MG TABLETS PO SCH (22:11)
[2021-01-16] MEDS: hydrOXYzine PAMOATE 25 MG CAPSULE (FP) PO SCH ×5 (05:16→22:20)
[2021-01-16] MEDS: LORazepam 2 MG TABLET PO SCH ×4 (05:16→22:20)
[2021-01-16] MEDS: TAMSULOSIN HCL 0.4 MG CAP PO SCH (08:49)
[2021-01-16] MEDS: amLODIPine BESYLATE 5 MG TABLET (FP) PO SCH (10:10)
[2021-01-16] MEDS: metoPROLOL SUCCINATE 25 MG TAB.SR.24H (FP) PO SCH (10:10)
[2021-01-16] MEDS: PRENATAL VITAMINS W/ FOLIC ACID TABLET (FP) PO SCH (10:10)
[2021-01-16] MEDS: HYDROCHLOROTHIAZIDE 25 MG TABLET (FP) PO SCH (10:10)
[2021-01-16 11:20] LABS: HEMOGLOBIN 13.3 GM/dL (11.7-16.9); MCH 28.3 pg (25.7-33.7); MCHC 34.1 g/dl (32.0-35.9); MEAN CELL VOLUME 82.9 fl (80-96); MEAN PLT VOLUME 9.1 fl (7.5-11.1); PLATELET COUNT 189 K/MM3 (134-434); POTASSIUM 3.3 mmol/L (3.5-5.1); RBC 4.71 M/mm3 (4.00-5.60); RDW 15.2 % (11.9-15.9); WHITE BLOOD COUNT 4.3 K/mm3 (4.0-10.0)
[2021-01-16 11:29] LABS: ALBUMIN 3.8 g/dl (3.4-5.0)
[2021-01-16 11:36] LABS: BILIRUBIN,TOTAL 1.1 mg/dL (0.2-1); TOT PROT 7.1 g/dl (6.4-8.2)
[2021-01-16] MEDS ORDERED: POTASSIUM CHLORIDE TABS 20 MEQ TABLET.ER (FP) PO ONE (17:21)
[2021-01-16] MEDS: MELATONIN 5 MG TABLETS PO SCH (22:20)
[2021-01-16] MEDS: THIAMINE HCL 100 MG TABLET (FP) PO SCH (22:20)
[2021-01-17] MEDS: hydrOXYzine PAMOATE 25 MG CAPSULE (FP) PO SCH ×5 (05:55→22:30)
[2021-01-17] MEDS: LORazepam 1 MG TABLET PO SCH ×4 (05:55→22:29)
[2021-01-17] MEDS: PRENATAL VITAMINS W/ FOLIC ACID TABLET (FP) PO SCH (10:15)
[2021-01-17] MEDS: metoPROLOL SUCCINATE 25 MG TAB.SR.24H (FP) PO SCH (10:16)
[2021-01-17] MEDS: HYDROCHLOROTHIAZIDE 25 MG TABLET (FP) PO SCH (10:16)
[2021-01-17] MEDS: TAMSULOSIN HCL 0.4 MG CAP PO SCH (10:16)
[2021-01-17] MEDS: amLODIPine BESYLATE 5 MG TABLET (FP) PO SCH (10:16)
[2021-01-17] MEDS: THIAMINE HCL 100 MG TABLET (FP) PO SCH (22:30)
[2021-01-17] MEDS: MELATONIN 5 MG TABLETS PO SCH (22:30)
[2021-01-18] MEDS ORDERED: LORazepam 0.5 MG TABLET PO PRN
[2021-01-18] MEDS: LORazepam 0.5 MG TABLET PO SCH ×4 (05:36→22:17)
[2021-01-18] MEDS: hydrOXYzine PAMOATE 25 MG CAPSULE (FP) PO SCH ×2 (05:36→10:12)
[2021-01-18] MEDS: TAMSULOSIN HCL 0.4 MG CAP PO SCH (08:01)
[2021-01-18] MEDS: amLODIPine BESYLATE 5 MG TABLET (FP) PO SCH (10:10)
[2021-01-18] MEDS: PRENATAL VITAMINS W/ FOLIC ACID TABLET (FP) PO SCH (10:10)
[2021-01-18] MEDS: metoPROLOL SUCCINATE 25 MG TAB.SR.24H (FP) PO SCH (10:10)
[2021-01-18] MEDS: HYDROCHLOROTHIAZIDE 25 MG TABLET (FP) PO SCH (10:10)
[2021-01-18] MEDS ORDERED: hydrOXYzine PAMOATE 25 MG CAPSULE (FP) PO PRN (10:45)
[2021-01-18] MEDS: THIAMINE HCL 100 MG TABLET (FP) PO SCH (22:17)
[2021-01-18] MEDS: MELATONIN 5 MG TABLETS PO SCH (22:17)
[2021-01-19] MEDS ORDERED: LORazepam 0.5 MG TABLET PO ONE (05:00)
[2021-01-19 09:17] VITALS: BP 128/82; PULSE 70; TEMP 96.9
[2021-01-19] MEDS: metoPROLOL SUCCINATE 25 MG TAB.SR.24H (FP) PO SCH (09:18)
[2021-01-19] MEDS: HYDROCHLOROTHIAZIDE 25 MG TABLET (FP) PO SCH (09:18)
[2021-01-19] MEDS: PRENATAL VITAMINS W/ FOLIC ACID TABLET (FP) PO SCH (09:18)
[2021-01-19] MEDS: TAMSULOSIN HCL 0.4 MG CAP PO SCH (09:18)
[2021-01-19] MEDS: amLODIPine BESYLATE 5 MG TABLET (FP) PO SCH (09:18)
== END 2021-01-19 09:22 | disposition home or self-care (01) | DRG 897 ==
LOC: YASAS 11:27 → Y3N 20:17
PROVIDERS: ADMIT Allergy & Immunology; ATTEND Allergy & Immunology
PROC: HZ2ZZZZ Detoxification Services for Substance Abuse Treatment (ICD-10-PCS; principal; 2021-01-15)
DX: F10.230 Alcohol dependence with withdrawal, uncomplicated (principal); F19.24 Other psychoactive substance dependence with psychoactive substance-induced mood disorder; E87.6 Hypokalemia; E78.5 Hyperlipidemia, unspecified; K21.9 Gastro-esophageal reflux disease without esophagitis; I10 Essential (primary) hypertension; N40.0 Benign prostatic hyperplasia without lower urinary tract symptoms; B19.20 Unspecified viral hepatitis C without hepatic coma; Z96.643 Presence of artificial hip joint, bilateral; Z87.11 Personal history of peptic ulcer disease; Z85.118 Personal history of other malignant neoplasm of bronchus and lung; Z90.3 Acquired absence of stomach [part of]; Z87.891 Personal history of nicotine dependence
CPT/HCPCS: 36415; 80053; 84132; 85027; 86780; C9803; U0003

== ENCOUNTER 2021-02-04 16:33 | Inpatient (IN) | payer OTHER ==
[2021-02-04] MEDS ORDERED: ACETAMINOPHEN 325 MG TABLET (FP) PO PRN (17:54)
[2021-02-04] MEDS ORDERED: IBUPROFEN 400 MG TABLET (FP) PO PRN (17:54)
[2021-02-04] MEDS ORDERED: LOPERAMIDE HCL 2 MG CAPSULE PO PRN (17:54)
[2021-02-04] MEDS ORDERED: P-EPHED 60MG/TRIPROLIDI 2.5MG TABLET PO PRN (17:54)
[2021-02-04] MEDS ORDERED: MAGNESIUM HYDROX 2400MG/30ML ORAL SUSPENSION 30 ML CUP PO PRN (17:54)
[2021-02-04] MEDS ORDERED: MAGNESIUM CITRATE 300 ML BOTTLE PO PRN (17:54)
[2021-02-04] MEDS ORDERED: MAG HYDROX/AL HYDROX/SIMETH 30 ML UNIT-DOSE CUP PO PRN (17:54)
[2021-02-04] MEDS ORDERED: guaiFENesin 200 MG/10 ML 10 ML UNIT-DOSE CUPS PO PRN (17:54)
[2021-02-04 18:07] VITALS: BMI 22.5
[2021-02-04] MEDS: amLODIPine BESYLATE 5 MG TABLET (FP) PO SCH (20:20)
[2021-02-04] MEDS: THIAMINE HCL 100 MG TABLET (FP) PO SCH (21:47)
[2021-02-04] MEDS: MELATONIN 5 MG TABLETS PO SCH (21:47)
[2021-02-05] MEDS: TAMSULOSIN HCL 0.4 MG CAP PO SCH (08:55)
[2021-02-05] MEDS: HYDROCHLOROTHIAZIDE 25 MG TABLET (FP) PO SCH (10:20)
[2021-02-05] MEDS: PRENATAL VITAMINS W/ FOLIC ACID TABLET (FP) PO SCH (10:20)
[2021-02-05] MEDS: metoPROLOL SUCCINATE 25 MG TAB.SR.24H (FP) PO SCH (10:20)
[2021-02-05] MEDS: amLODIPine BESYLATE 5 MG TABLET (FP) PO SCH (10:20)
[2021-02-05] MEDS: ERGOCALCIFEROL (VIT D2) 50,000 UNIT (1.25 MG) CAPSULE PO SCH (10:42)
[2021-02-05 14:43] LABS: URINE APPEARANCE CLEAR; URINE BILIRUBIN NEGATIVE (NEGATIVE); URINE COLOR YELLOW; URINE GLUCOSE (UA) NEGATIVE (NEGATIVE); URINE KETONE NEGATIVE (NEGATIVE); URINE LEUK ESTERASE NEGATIVE (NEGATIVE); URINE NITRITE NEGATIVE (NEGATIVE); URINE PROTEIN NEGATIVE (NEGATIVE); URINE UROBILINOGEN 0.2 mg/dL (0.2-1.0)
[2021-02-05] MEDS: MELATONIN 5 MG TABLETS PO SCH (21:41)
[2021-02-05] MEDS: THIAMINE HCL 100 MG TABLET (FP) PO SCH (21:41)
[2021-02-06] MEDS: TAMSULOSIN HCL 0.4 MG CAP PO SCH (10:09)
[2021-02-06] MEDS: HYDROCHLOROTHIAZIDE 25 MG TABLET (FP) PO SCH (10:09)
[2021-02-06] MEDS: metoPROLOL SUCCINATE 25 MG TAB.SR.24H (FP) PO SCH (10:09)
[2021-02-06] MEDS: amLODIPine BESYLATE 5 MG TABLET (FP) PO SCH (10:09)
[2021-02-06] MEDS: PRENATAL VITAMINS W/ FOLIC ACID TABLET (FP) PO SCH (10:09)
[2021-02-06] MEDS: MELATONIN 5 MG TABLETS PO SCH (21:09)
[2021-02-06] MEDS: THIAMINE HCL 100 MG TABLET (FP) PO SCH (21:09)
[2021-02-07] MEDS: amLODIPine BESYLATE 5 MG TABLET (FP) PO SCH (10:11)
[2021-02-07] MEDS: PRENATAL VITAMINS W/ FOLIC ACID TABLET (FP) PO SCH (10:11)
[2021-02-07] MEDS: metoPROLOL SUCCINATE 25 MG TAB.SR.24H (FP) PO SCH (10:11)
[2021-02-07] MEDS: TAMSULOSIN HCL 0.4 MG CAP PO SCH (10:12)
[2021-02-07] MEDS: HYDROCHLOROTHIAZIDE 25 MG TABLET (FP) PO SCH (10:12)
[2021-02-07] MEDS: THIAMINE HCL 100 MG TABLET (FP) PO SCH (21:30)
[2021-02-07] MEDS: MELATONIN 5 MG TABLETS PO SCH (21:30)
[2021-02-08] MEDS: TAMSULOSIN HCL 0.4 MG CAP PO SCH (08:35)
[2021-02-08] MEDS: PRENATAL VITAMINS W/ FOLIC ACID TABLET (FP) PO SCH (10:35)
[2021-02-08] MEDS: amLODIPine BESYLATE 5 MG TABLET (FP) PO SCH (10:35)
[2021-02-08] MEDS: metoPROLOL SUCCINATE 25 MG TAB.SR.24H (FP) PO SCH (10:35)
[2021-02-08] MEDS: HYDROCHLOROTHIAZIDE 25 MG TABLET (FP) PO SCH (10:36)
[2021-02-08] MEDS: THIAMINE HCL 100 MG TABLET (FP) PO SCH (21:25)
[2021-02-08] MEDS: MELATONIN 5 MG TABLETS PO SCH (21:25)
[2021-02-09] MEDS: TAMSULOSIN HCL 0.4 MG CAP PO SCH (08:45)
[2021-02-09] MEDS: amLODIPine BESYLATE 5 MG TABLET (FP) PO SCH (10:09)
[2021-02-09] MEDS: PRENATAL VITAMINS W/ FOLIC ACID TABLET (FP) PO SCH (10:09)
[2021-02-09] MEDS: HYDROCHLOROTHIAZIDE 25 MG TABLET (FP) PO SCH (10:09)
[2021-02-09] MEDS: metoPROLOL SUCCINATE 25 MG TAB.SR.24H (FP) PO SCH (10:09)
[2021-02-09] MEDS: MELATONIN 5 MG TABLETS PO SCH (21:29)
[2021-02-09] MEDS: THIAMINE HCL 100 MG TABLET (FP) PO SCH (21:29)
[2021-02-10] MEDS: amLODIPine BESYLATE 5 MG TABLET (FP) PO SCH (10:23)
[2021-02-10] MEDS: TAMSULOSIN HCL 0.4 MG CAP PO SCH (10:23)
[2021-02-10] MEDS: metoPROLOL SUCCINATE 25 MG TAB.SR.24H (FP) PO SCH (10:23)
[2021-02-10] MEDS: PRENATAL VITAMINS W/ FOLIC ACID TABLET (FP) PO SCH (10:23)
[2021-02-10] MEDS: HYDROCHLOROTHIAZIDE 25 MG TABLET (FP) PO SCH (10:23)
[2021-02-10] MEDS: THIAMINE HCL 100 MG TABLET (FP) PO SCH (21:15)
[2021-02-10] MEDS: MELATONIN 5 MG TABLETS PO SCH (21:16)
[2021-02-11] MEDS: HYDROCHLOROTHIAZIDE 25 MG TABLET (FP) PO SCH (10:29)
[2021-02-11] MEDS: TAMSULOSIN HCL 0.4 MG CAP PO SCH (10:29)
[2021-02-11] MEDS: amLODIPine BESYLATE 5 MG TABLET (FP) PO SCH (10:29)
[2021-02-11] MEDS: PRENATAL VITAMINS W/ FOLIC ACID TABLET (FP) PO SCH (10:29)
[2021-02-11] MEDS: metoPROLOL SUCCINATE 25 MG TAB.SR.24H (FP) PO SCH (10:29)
[2021-02-11] MEDS: THIAMINE HCL 100 MG TABLET (FP) PO SCH (21:22)
[2021-02-11] MEDS: MELATONIN 5 MG TABLETS PO SCH (21:22)
[2021-02-12] MEDS: TAMSULOSIN HCL 0.4 MG CAP PO SCH (08:50)
[2021-02-12] MEDS: ERGOCALCIFEROL (VIT D2) 50,000 UNIT (1.25 MG) CAPSULE PO SCH (10:15)
[2021-02-12] MEDS: amLODIPine BESYLATE 5 MG TABLET (FP) PO SCH (10:15)
[2021-02-12] MEDS: HYDROCHLOROTHIAZIDE 25 MG TABLET (FP) PO SCH (10:15)
[2021-02-12] MEDS: PRENATAL VITAMINS W/ FOLIC ACID TABLET (FP) PO SCH (10:16)
[2021-02-12] MEDS: metoPROLOL SUCCINATE 25 MG TAB.SR.24H (FP) PO SCH (10:16)
[2021-02-12] MEDS: MELATONIN 5 MG TABLETS PO SCH (21:20)
[2021-02-12] MEDS: THIAMINE HCL 100 MG TABLET (FP) PO SCH (21:20)
[2021-02-13 06:46] VITALS: BP 110/71; PULSE 72; TEMP 97.2
[2021-02-13] MEDS: TAMSULOSIN HCL 0.4 MG CAP PO SCH (08:45)
[2021-02-13] MEDS: amLODIPine BESYLATE 5 MG TABLET (FP) PO SCH (10:01)
[2021-02-13] MEDS: PRENATAL VITAMINS W/ FOLIC ACID TABLET (FP) PO SCH (10:01)
[2021-02-13] MEDS: metoPROLOL SUCCINATE 25 MG TAB.SR.24H (FP) PO SCH (10:01)
[2021-02-13] MEDS: HYDROCHLOROTHIAZIDE 25 MG TABLET (FP) PO SCH (10:02)
== END 2021-02-13 10:40 | disposition home or self-care (01) | DRG 895 ==
LOC: YASAS 16:33 → Y3W 18:46
PROVIDERS: ADMIT Allergy & Immunology; ATTEND Allergy & Immunology
PROC: HZ42ZZZ Group Counseling for Substance Abuse Treatment, Cognitive-Behavioral (ICD-10-PCS; principal; 2021-02-04)
DX: F10.20 Alcohol dependence, uncomplicated (principal); I10 Essential (primary) hypertension; N40.0 Benign prostatic hyperplasia without lower urinary tract symptoms; Z96.643 Presence of artificial hip joint, bilateral; Z85.118 Personal history of other malignant neoplasm of bronchus and lung; Z87.11 Personal history of peptic ulcer disease; Z90.2 Acquired absence of lung [part of]; Z90.3 Acquired absence of stomach [part of]
CPT/HCPCS: 81003; C9803; U0003

== ENCOUNTER 2021-05-03 11:07 | Inpatient (IN) | payer OTHER ==
[2021-05-03 12:59] VITALS: BMI 21.4
[2021-05-03] MEDS ORDERED: MENTHOL/PHENOL 1 EACH UD MM PRN (14:27)
[2021-05-03] MEDS ORDERED: NICOTINE POLACRILEX 2 MG GUM BUC PRN (14:27)
[2021-05-03] MEDS ORDERED: MAGNESIUM HYDROX 2400MG/30ML ORAL SUSPENSION 30 ML CUP PO PRN (14:27)
[2021-05-03] MEDS ORDERED: ONDANSETRON *ODT* 4 MG TABLET SL PRN (14:27)
[2021-05-03] MEDS ORDERED: METHOCARBAMOL 500 MG TABLET PO PRN (14:27)
[2021-05-03] MEDS ORDERED: MAG HYDROX/AL HYDROX/SIMETH 30 ML UNIT-DOSE CUP PO PRN (14:27)
[2021-05-03] MEDS ORDERED: MAGNESIUM CITRATE 300 ML BOTTLE PO PRN (14:27)
[2021-05-03] MEDS ORDERED: BISMUTH SUBSALICYLATE 262 MG/15 ML BTL PO PRN (14:27)
[2021-05-03] MEDS ORDERED: ACETAMINOPHEN 325 MG TABLET (FP) PO PRN ×2 (14:27)
[2021-05-03] MEDS ORDERED: diazePAM 5 MG TABLET PO PRN (14:27)
[2021-05-03] MEDS ORDERED: IBUPROFEN 400 MG TABLET (FP) PO PRN (14:27)
[2021-05-03] MEDS: PRENATAL VITAMINS W/ FOLIC ACID TABLET (FP) PO SCH (15:12)
[2021-05-03] MEDS: diazePAM 5 MG TABLET PO SCH ×2 (18:13→23:01)
[2021-05-03] MEDS: hydrOXYzine PAMOATE 25 MG CAPSULE (FP) PO SCH ×2 (18:13→23:00)
[2021-05-03] MEDS: MELATONIN 5 MG TABLETS PO SCH (23:01)
[2021-05-03] MEDS: THIAMINE HCL 100 MG TABLET (FP) PO SCH (23:01)
[2021-05-04] MEDS: diazePAM 5 MG TABLET PO SCH ×4 (06:20→22:33)
[2021-05-04] MEDS: hydrOXYzine PAMOATE 25 MG CAPSULE (FP) PO SCH ×5 (06:20→22:33)
[2021-05-04] MEDS: HYDROCHLOROTHIAZIDE 25 MG TABLET (FP) PO SCH (11:17)
[2021-05-04] MEDS: amLODIPine BESYLATE 5 MG TABLET (FP) PO SCH (11:17)
[2021-05-04] MEDS: PRENATAL VITAMINS W/ FOLIC ACID TABLET (FP) PO SCH (11:17)
[2021-05-04] MEDS: TAMSULOSIN HCL 0.4 MG CAP PO SCH (11:18)
[2021-05-04] MEDS: FOLIC ACID 1 MG TABLET (FP) PO SCH (11:18)
[2021-05-04] MEDS: metoPROLOL SUCCINATE 25 MG TAB.SR.24H (FP) PO SCH (11:18)
[2021-05-04] MEDS: CHOLECALCIFEROL (VIT D3) 400 UNIT (10 MCG) TABLET PO SCH (11:19)
[2021-05-04 11:20] LABS: HEMATOCRIT 43.9 % (35.4-49); HEMOGLOBIN 14.8 GM/dL (11.7-16.9); MCH 28.4 pg (25.7-33.7); MCHC 33.7 g/dl (32.0-35.9); MEAN CELL VOLUME 84.5 fl (80-96); PLATELET COUNT 168 K/MM3 (134-434); RBC 5.19 M/mm3 (4.00-5.60); RDW 14.9 % (11.9-15.9); WHITE BLOOD COUNT 7.2 K/mm3 (4.0-10.0)
[2021-05-04 11:22] LABS: ALBUMIN 4.3 g/dl (3.4-5.0); BLOOD UREA NITROGEN 10.8 mg/dL (7-18); CALCIUM 9.2 mg/dL (8.5-10.1)
[2021-05-04 11:25] LABS: CREATININE 0.9 mg/dL (0.55-1.3)
[2021-05-04] MEDS: THIAMINE HCL 100 MG TABLET (FP) PO SCH (22:33)
[2021-05-04] MEDS: MELATONIN 5 MG TABLETS PO SCH (22:33)
[2021-05-05] MEDS: hydrOXYzine PAMOATE 25 MG CAPSULE (FP) PO SCH ×2 (05:29→09:41)
[2021-05-05] MEDS ORDERED: diazePAM 5 MG TABLET PO SCH (06:00)
[2021-05-05] MEDS: PRENATAL VITAMINS W/ FOLIC ACID TABLET (FP) PO SCH (09:40)
[2021-05-05] MEDS: TAMSULOSIN HCL 0.4 MG CAP PO SCH (09:40)
[2021-05-05] MEDS: amLODIPine BESYLATE 5 MG TABLET (FP) PO SCH (09:41)
[2021-05-05] MEDS: FOLIC ACID 1 MG TABLET (FP) PO SCH (09:41)
[2021-05-05] MEDS: metoPROLOL SUCCINATE 25 MG TAB.SR.24H (FP) PO SCH (09:41)
[2021-05-05] MEDS: HYDROCHLOROTHIAZIDE 25 MG TABLET (FP) PO SCH (09:41)
[2021-05-05] MEDS: CHOLECALCIFEROL (VIT D3) 400 UNIT (10 MCG) TABLET PO SCH (09:42)
[2021-05-05 18:03] VITALS: BP 117/78; PULSE 86; TEMP 97.1
[2021-05-06] MEDS ORDERED: diazePAM 5 MG TABLET PO SCH (06:00)
[2021-05-07] MEDS ORDERED: diazePAM 5 MG TABLET PO ONE (06:00)
== END 2021-05-05 13:02 | disposition left against medical advice (07) | DRG 894 ==
LOC: YASAS 11:07 → Y6N 14:05
PROVIDERS: ADMIT Allergy & Immunology; ATTEND Allergy & Immunology
PROC: HZ2ZZZZ Detoxification Services for Substance Abuse Treatment (ICD-10-PCS; principal; 2021-05-03)
DX: F10.230 Alcohol dependence with withdrawal, uncomplicated (principal); F19.24 Other psychoactive substance dependence with psychoactive substance-induced mood disorder; E87.5 Hyperkalemia; B19.20 Unspecified viral hepatitis C without hepatic coma; I10 Essential (primary) hypertension; K21.9 Gastro-esophageal reflux disease without esophagitis; N40.0 Benign prostatic hyperplasia without lower urinary tract symptoms; Z87.11 Personal history of peptic ulcer disease; Z85.118 Personal history of other malignant neoplasm of bronchus and lung; Z87.891 Personal history of nicotine dependence
CPT/HCPCS: 36415; 80053; 85027; 86780; C9803; U0003; U0005

== ENCOUNTER 2021-06-05 10:31 | Inpatient (IN) | payer OTHER ==
[2021-06-05 11:16] VITALS: BMI 21.4
[2021-06-05] MEDS ORDERED: MENTHOL/PHENOL 1 EACH UD MM PRN (11:55)
[2021-06-05] MEDS ORDERED: MAGNESIUM CITRATE 300 ML BOTTLE PO PRN (11:55)
[2021-06-05] MEDS ORDERED: METHOCARBAMOL 500 MG TABLET PO PRN (11:55)
[2021-06-05] MEDS ORDERED: LORazepam 1 MG TABLET PO PRN (11:55)
[2021-06-05] MEDS ORDERED: ACETAMINOPHEN 325 MG TABLET (FP) PO PRN ×2 (11:55)
[2021-06-05] MEDS ORDERED: MAGNESIUM HYDROX 2400MG/30ML ORAL SUSPENSION 30 ML CUP PO PRN (11:55)
[2021-06-05] MEDS ORDERED: MAG HYDROX/AL HYDROX/SIMETH 30 ML UNIT-DOSE CUP PO PRN (11:55)
[2021-06-05] MEDS ORDERED: BISMUTH SUBSALICYLATE 262 MG/15 ML BTL PO PRN (11:55)
[2021-06-05] MEDS ORDERED: IBUPROFEN 400 MG TABLET (FP) PO PRN (11:55)
[2021-06-05] MEDS: ONDANSETRON *ODT* 4 MG TABLET SL PRN ×2 (12:00→18:00)
[2021-06-05] MEDS: HYDROCHLOROTHIAZIDE 25 MG TABLET (FP) PO SCH (12:32)
[2021-06-05] MEDS: TAMSULOSIN HCL 0.4 MG CAP PO SCH (12:32)
[2021-06-05] MEDS: amLODIPine BESYLATE 5 MG TABLET (FP) PO SCH (12:32)
[2021-06-05] MEDS: PRENATAL VITAMINS W/ FOLIC ACID TABLET (FP) PO SCH (12:33)
[2021-06-05] MEDS: hydrOXYzine PAMOATE 25 MG CAPSULE (FP) PO SCH ×3 (13:29→22:55)
[2021-06-05] MEDS: LORazepam 2 MG TABLET PO SCH ×2 (19:07→22:55)
[2021-06-05] MEDS: MELATONIN 5 MG TABLETS PO SCH (22:54)
[2021-06-05] MEDS: THIAMINE HCL 100 MG TABLET (FP) PO SCH (22:55)
[2021-06-06] MEDS: ONDANSETRON *ODT* 4 MG TABLET SL PRN (02:15)
[2021-06-06] MEDS: LORazepam 2 MG TABLET PO SCH (05:39)
[2021-06-06] MEDS: hydrOXYzine PAMOATE 25 MG CAPSULE (FP) PO SCH ×2 (05:39→10:31)
[2021-06-06] MEDS: TAMSULOSIN HCL 0.4 MG CAP PO SCH (08:25)
[2021-06-06] MEDS ORDERED: metoPROLOL SUCCINATE 25 MG TAB.SR.24H (FP) PO SCH (10:00)
[2021-06-06] MEDS ORDERED: CHOLECALCIFEROL (VIT D3) 400 UNIT (10 MCG) TABLET PO SCH (10:00)
[2021-06-06] MEDS: amLODIPine BESYLATE 5 MG TABLET (FP) PO SCH (10:31)
[2021-06-06] MEDS: HYDROCHLOROTHIAZIDE 25 MG TABLET (FP) PO SCH (10:31)
[2021-06-06] MEDS: PRENATAL VITAMINS W/ FOLIC ACID TABLET (FP) PO SCH (10:31)
[2021-06-06] MEDS ORDERED: LORazepam 1 MG TABLET PO PRN (10:50)
[2021-06-06 10:57] LABS: ALBUMIN 4.3 g/dl (3.4-5.0); BLOOD UREA NITROGEN 10.9 mg/dL (7-18); CALCIUM 9.5 mg/dL (8.5-10.1); HEMATOCRIT 44.1 % (35.4-49); HEMOGLOBIN 14.8 GM/dL (11.7-16.9); MCH 29.2 pg (25.7-33.7); MCHC 33.5 g/dl (32.0-35.9); MEAN CELL VOLUME 87.3 fl (80-96); MEAN PLT VOLUME 8.5 fl (7.5-11.1); PLATELET COUNT 112 10^3/uL (134-434); RBC 5.05 M/mm3 (4.00-5.60); RDW 16.7 % (11.9-15.9); WHITE BLOOD COUNT 7.2 K/mm3 (4.0-10.0)
[2021-06-06 11:02] LABS: BILIRUBIN,TOTAL 2.1 mg/dL (0.2-1); TOT PROT 7.6 g/dl (6.4-8.2)
[2021-06-06 11:04] LABS: CREATININE 0.9 mg/dL (0.55-1.3)
[2021-06-06] MEDS ORDERED: LORazepam 0.5 MG TABLET PO PRN (11:05)
[2021-06-06] MEDS: LORazepam 0.5 MG TABLET PO SCH ×3 (11:18→23:00)
[2021-06-06] MEDS ORDERED: guaiFENesin 200 MG/10 ML 10 ML UNIT-DOSE CUPS PO PRN (21:15)
[2021-06-06] MEDS: THIAMINE HCL 100 MG TABLET (FP) PO SCH (22:32)
[2021-06-06] MEDS: MELATONIN 5 MG TABLETS PO SCH (23:00)
[2021-06-07] MEDS ORDERED: LORazepam 0.5 MG TABLET PO SCH (05:00)
[2021-06-07] MEDS ORDERED: LORazepam 1 MG TABLET PO SCH (05:00)
[2021-06-07 06:20] VITALS: TEMP 97.7
[2021-06-07 08:58] VITALS: BP 119/75; PULSE 109
[2021-06-07 13:34] LABS: ALBUMIN 3.6 g/dl (3.4-5.0); BILIRUBIN,DIRECT 0.5 mg/dL (0.0-0.2)
[2021-06-07 13:36] LABS: BILIRUBIN,TOTAL 1.7 mg/dL (0.2-1); TOT PROT 6.9 g/dl (6.4-8.2)
[2021-06-08] MEDS ORDERED: LORazepam 0.5 MG TABLET PO PRN ×2
[2021-06-08] MEDS ORDERED: LORazepam 0.5 MG TABLET PO SCH ×2 (05:00)
[2021-06-09] MEDS ORDERED: LORazepam 0.5 MG TABLET PO ONE (05:00)
== END 2021-06-07 09:54 | disposition left against medical advice (07) | DRG 894 ==
LOC: YASAS 10:31 → Y6N 11:46
PROVIDERS: ADMIT Allergy & Immunology; ATTEND Allergy & Immunology
PROC: HZ2ZZZZ Detoxification Services for Substance Abuse Treatment (ICD-10-PCS; principal; 2021-06-05)
DX: F10.230 Alcohol dependence with withdrawal, uncomplicated (principal); I10 Essential (primary) hypertension; K21.9 Gastro-esophageal reflux disease without esophagitis; N40.0 Benign prostatic hyperplasia without lower urinary tract symptoms; Z85.118 Personal history of other malignant neoplasm of bronchus and lung; Z87.891 Personal history of nicotine dependence; Z87.11 Personal history of peptic ulcer disease; Z86.19 Personal history of other infectious and parasitic diseases
CPT/HCPCS: 36415; 80053; 80076; 82140; 85027; 86780; C9803; Q0162; U0003; U0005

== ENCOUNTER 2021-07-23 10:29 | Inpatient (IN) | payer OTHER ==
[2021-07-23 11:02] VITALS: BMI 20.5
[2021-07-23] MEDS ORDERED: METHOCARBAMOL 500 MG TABLET PO PRN (11:39)
[2021-07-23] MEDS ORDERED: BISMUTH SUBSALICYLATE 262 MG/15 ML BTL PO PRN (11:39)
[2021-07-23] MEDS ORDERED: MAG HYDROX/AL HYDROX/SIMETH 30 ML UNIT-DOSE CUP PO PRN (11:39)
[2021-07-23] MEDS ORDERED: MAGNESIUM CITRATE 300 ML BOTTLE PO PRN (11:39)
[2021-07-23] MEDS ORDERED: ACETAMINOPHEN 325 MG TABLET (FP) PO PRN ×2 (11:39)
[2021-07-23] MEDS ORDERED: IBUPROFEN 400 MG TABLET (FP) PO PRN (11:39)
[2021-07-23] MEDS ORDERED: MAGNESIUM HYDROX 2400MG/30ML ORAL SUSPENSION 30 ML CUP PO PRN (11:39)
[2021-07-23] MEDS ORDERED: MENTHOL/PHENOL 1 EACH UD MM PRN (11:39)
[2021-07-23] MEDS: ONDANSETRON *ODT* 4 MG TABLET SL PRN ×2 (12:56→21:08)
[2021-07-23] MEDS: diazePAM 5 MG TABLET PO PRN (12:57)
[2021-07-23] MEDS: diazePAM 5 MG TABLET PO SCH ×2 (16:38→22:16)
[2021-07-23] MEDS: MELATONIN 5 MG TABLETS PO SCH (21:09)
[2021-07-23] MEDS: THIAMINE HCL 100 MG TABLET (FP) PO SCH (21:10)
[2021-07-24] MEDS ORDERED: TRIMETHOBENZAMIDE HCL 200MG/2ML INJ IM ONE (01:44)
[2021-07-24] MEDS: diazePAM 5 MG TABLET PO SCH (04:04)
[2021-07-24] MEDS: diazePAM 5 MG TABLET PO PRN (07:16)
[2021-07-24] MEDS ORDERED: LORazepam 1 MG TABLET PO PRN (08:39)
[2021-07-24] MEDS ORDERED: DICYCLOMINE HCL 10 MG CAPSULE PO ONE (08:43)
[2021-07-24] MEDS: TAMSULOSIN HCL 0.4 MG CAP PO SCH (10:07)
[2021-07-24] MEDS: PRENATAL VITAMINS W/ FOLIC ACID TABLET (FP) PO SCH (10:07)
[2021-07-24] MEDS: HYDROCHLOROTHIAZIDE 25 MG TABLET (FP) PO SCH (10:07)
[2021-07-24] MEDS: LORazepam 2 MG TABLET PO SCH ×3 (10:07→22:12)
[2021-07-24] MEDS: amLODIPine BESYLATE 5 MG TABLET (FP) PO SCH (10:07)
[2021-07-24] MEDS: FAMOTIDINE 20 MG TABLET PO SCH ×2 (10:08→22:12)
[2021-07-24 11:09] LABS: HEMATOCRIT 43.4 % (35.4-49); HEMOGLOBIN 14.9 GM/dL (11.7-16.9); MCH 30.5 pg (25.7-33.7); MCHC 34.4 g/dl (32.0-35.9); MEAN CELL VOLUME 88.6 fl (80-96); MEAN PLT VOLUME 10.5 fl (7.5-11.1); PLATELET COUNT 160 10^3/uL (134-434); RDW 15.8 % (11.9-15.9); WHITE BLOOD COUNT 5.6 K/mm3 (4.0-10.0)
[2021-07-24 11:13] LABS: ALBUMIN 4.3 g/dl (3.4-5.0); BLOOD UREA NITROGEN 9.6 mg/dL (7-18); CALCIUM 9.3 mg/dL (8.5-10.1)
[2021-07-24 11:16] LABS: CREATININE 0.9 mg/dL (0.55-1.3)
[2021-07-24 11:18] LABS: TOT PROT 8.1 g/dl (6.4-8.2)
[2021-07-24] MEDS ORDERED: SUCRALFATE 1 GM TABLET (FP) PO ONE (14:00)
[2021-07-24] MEDS: MELATONIN 5 MG TABLETS PO SCH (22:12)
[2021-07-24] MEDS: THIAMINE HCL 100 MG TABLET (FP) PO SCH (22:12)
[2021-07-25] MEDS: LORazepam 2 MG TABLET PO SCH ×2 (05:54→10:26)
[2021-07-25] MEDS ORDERED: diazePAM 5 MG TABLET PO SCH (06:00)
[2021-07-25] MEDS: TAMSULOSIN HCL 0.4 MG CAP PO SCH (07:30)
[2021-07-25] MEDS: FAMOTIDINE 20 MG TABLET PO SCH (10:26)
[2021-07-25] MEDS: PRENATAL VITAMINS W/ FOLIC ACID TABLET (FP) PO SCH (10:26)
[2021-07-25] MEDS: HYDROCHLOROTHIAZIDE 25 MG TABLET (FP) PO SCH (11:28)
[2021-07-25] MEDS: amLODIPine BESYLATE 5 MG TABLET (FP) PO SCH (11:29)
[2021-07-25 13:17] VITALS: BP 122/73; PULSE 83; TEMP 97.1
[2021-07-26] MEDS ORDERED: LORazepam 1 MG TABLET PO SCH (05:00)
[2021-07-26] MEDS ORDERED: diazePAM 5 MG TABLET PO SCH (06:00)
[2021-07-27] MEDS ORDERED: LORazepam 0.5 MG TABLET PO PRN
[2021-07-27] MEDS ORDERED: LORazepam 0.5 MG TABLET PO SCH (05:00)
[2021-07-27] MEDS ORDERED: diazePAM 5 MG TABLET PO ONE (06:00)
[2021-07-28] MEDS ORDERED: LORazepam 0.5 MG TABLET PO ONE (05:00)
== END 2021-07-25 13:55 | disposition left against medical advice (07) | DRG 894 ==
LOC: YASAS 10:29 → Y6N 12:18 → Y3N 07-25 12:06
PROVIDERS: ADMIT Allergy & Immunology; ATTEND Allergy & Immunology
PROC: HZ2ZZZZ Detoxification Services for Substance Abuse Treatment (ICD-10-PCS; principal; 2021-07-23)
DX: F10.230 Alcohol dependence with withdrawal, uncomplicated (principal); I10 Essential (primary) hypertension; E55.9 Vitamin D deficiency, unspecified; N40.0 Benign prostatic hyperplasia without lower urinary tract symptoms; B18.2 Chronic viral hepatitis C; Z85.118 Personal history of other malignant neoplasm of bronchus and lung; Z87.11 Personal history of peptic ulcer disease; Z87.19 Personal history of other diseases of the digestive system; Z90.3 Acquired absence of stomach [part of]
CPT/HCPCS: 36415; 71045-TC-FY; 72100-TC-FY; 80053; 85027; 86780; 93005; 93010; C9803; Q0162; U0003; U0005

== ENCOUNTER 2022-04-01 00:43 | Inpatient (IN) | payer OTHER ==
[2022-04-01 01:02] VITALS: BMI 21.4
[2022-04-01] MEDS ORDERED: BENZOCAINE/MENTHOL (CHLORASEPTIC ) LOZENGE MM PRN (08:48)
[2022-04-01] MEDS ORDERED: MAGNESIUM CITRATE 300 ML BOTTLE PO PRN (08:48)
[2022-04-01] MEDS ORDERED: IBUPROFEN 400 MG TABLET (FP) PO PRN (08:48)
[2022-04-01] MEDS ORDERED: DICYCLOMINE HCL 10 MG CAPSULE PO PRN (08:48)
[2022-04-01] MEDS ORDERED: LOPERAMIDE HCL 2 MG CAPSULE PO PRN (08:48)
[2022-04-01] MEDS ORDERED: METHOCARBAMOL 500 MG TABLET PO PRN (08:48)
[2022-04-01] MEDS ORDERED: ACETAMINOPHEN 325 MG TABLET (FP) PO PRN ×2 (08:48)
[2022-04-01] MEDS ORDERED: MAG HYDROX/AL HYDROX/SIMETH 30 ML UNIT-DOSE CUP PO PRN (08:48)
[2022-04-01] MEDS ORDERED: LORazepam 1 MG TABLET PO PRN (08:48)
[2022-04-01] MEDS ORDERED: MAGNESIUM HYDROX 2400MG/30ML ORAL SUSPENSION 30 ML CUP PO PRN (08:48)
[2022-04-01] MEDS ORDERED: BISMUTH SUBSALICYLATE 262 MG/15 ML BTL PO PRN (08:48)
[2022-04-01] MEDS ORDERED: ONDANSETRON *ODT* 4 MG TABLET SL PRN (08:48)
[2022-04-01] MEDS ORDERED: hydrOXYzine PAMOATE 25 MG CAPSULE (FP) PO PRN (10:00)
[2022-04-01] MEDS: PRENATAL VITAMINS W/ FOLIC ACID TABLET (FP) PO SCH (12:38)
[2022-04-01] MEDS: TAMSULOSIN HCL 0.4 MG CAP PO SCH (12:39)
[2022-04-01] MEDS: LORazepam 2 MG TABLET PO SCH ×3 (12:39→22:33)
[2022-04-01] MEDS: HYDROCHLOROTHIAZIDE 25 MG TABLET (FP) PO SCH (12:40)
[2022-04-01] MEDS: CHOLECALCIFEROL (VIT D3) 400 UNIT (10 MCG) TABLET PO SCH (13:06)
[2022-04-01 14:08] LABS: HEMOGLOBIN 13.3 GM/dL (11.7-16.9); MCH 26.6 pg (25.7-33.7); MCHC 33.2 g/dl (32.0-35.9); MEAN CELL VOLUME 80.1 fl (80-96); MEAN PLT VOLUME 8.5 fl (7.5-11.1); PLATELET COUNT 169 10^3/uL (134-434); RBC 4.99 M/mm3 (4.00-5.60); RDW 17.1 % (11.9-15.9); WHITE BLOOD COUNT 5.9 K/mm3 (4.0-10.0)
[2022-04-01 14:11] LABS: ALBUMIN 3.9 g/dl (3.4-5.0); CALCIUM 10.1 mg/dL (8.5-10.1)
[2022-04-01 14:14] LABS: CREATININE 0.8 mg/dL (0.55-1.3)
[2022-04-01 14:16] LABS: BILIRUBIN,TOTAL 1.1 mg/dL (0.2-1)
[2022-04-01] MEDS ORDERED: MELATONIN 5 MG TABLETS PO SCH (22:00)
[2022-04-01] MEDS ORDERED: THIAMINE HCL 100 MG TABLET (FP) PO SCH (22:00)
[2022-04-02] MEDS: LORazepam 2 MG TABLET PO SCH ×2 (05:55→10:26)
[2022-04-02] MEDS: HYDROCHLOROTHIAZIDE 25 MG TABLET (FP) PO SCH (10:26)
[2022-04-02] MEDS: CHOLECALCIFEROL (VIT D3) 400 UNIT (10 MCG) TABLET PO SCH (10:26)
[2022-04-02] MEDS: PRENATAL VITAMINS W/ FOLIC ACID TABLET (FP) PO SCH (10:27)
[2022-04-02] MEDS: TAMSULOSIN HCL 0.4 MG CAP PO SCH (10:27)
[2022-04-02 12:32] VITALS: BP 111/71; PULSE 98; TEMP 97.1
[2022-04-03] MEDS ORDERED: LORazepam 1 MG TABLET PO SCH (05:00)
[2022-04-03 14:09] LABS: SARS-CoV-2 NAA Not Detected (Not Detected)
[2022-04-04] MEDS ORDERED: LORazepam 0.5 MG TABLET PO PRN
[2022-04-04] MEDS ORDERED: LORazepam 0.5 MG TABLET PO SCH (05:00)
[2022-04-05] MEDS ORDERED: LORazepam 0.5 MG TABLET PO ONE (05:00)
== END 2022-04-02 15:40 | disposition left against medical advice (07) | DRG 894 ==
LOC: YASAS 00:43 → Y3N 10:00
PROVIDERS: ADMIT Allergy & Immunology; ATTEND Allergy & Immunology
PROC: HZ2ZZZZ Detoxification Services for Substance Abuse Treatment (ICD-10-PCS; principal; 2022-04-01)
DX: F10.230 Alcohol dependence with withdrawal, uncomplicated (principal); E55.9 Vitamin D deficiency, unspecified; E78.5 Hyperlipidemia, unspecified; I10 Essential (primary) hypertension; N40.0 Benign prostatic hyperplasia without lower urinary tract symptoms; B18.2 Chronic viral hepatitis C; Z85.118 Personal history of other malignant neoplasm of bronchus and lung; Z90.2 Acquired absence of lung [part of]; Z90.3 Acquired absence of stomach [part of]; Z87.891 Personal history of nicotine dependence; Z87.19 Personal history of other diseases of the digestive system
CPT/HCPCS: 36415; 80053; 85027; 86780; 93005; 93010; C9803-CS; U0003; U0005